=== PATIENT | female | born 1955 | race Caucasian/White ===

== ENCOUNTER → 2021-05-10 | Outpatient (CLI) | payer OTHER ==
[~2021-05-10] MED LIST: ALPR0.25 PO; ASPI-789 PO; LATA7.5D OP
--- NOTE | 2021-05-10 08:35 | Diagnostic Imaging Report ---
PROCEDURE: US Gallbladder. TECHNIQUE: Multiple real-time grayscale images were obtained over the right upper quadrant in various projections. INDICATION: Right upper quadrant pain with nausea and vomiting. Hepatic echotexture appeared homogenous and normal. No solid or cystic liver mass. There is no intra or extrahepatic bile duct dilatation. There are mobile echogenic shadowing foci within the gallbladder consistent with gallstones. There was however no para cholecystic fluid. The Gomes sign was negative. The gallbladder wall non-thickened. The extrahepatic bile duct appeared normal and the unobstructed right kidney measuring 10.6 cm long axis was normal in size, cortical thickness and echotexture. IMPRESSION: Cholelithiasis. Dictated by: Dictated on workstation # [id number]
== END ==
LOC: RAD 08:00
PROVIDERS: ATTEND Surgery
DX: K80.20 Calculus of gallbladder without cholecystitis without obstruction (principal)
CPT/HCPCS: 76705

== ENCOUNTER 2021-05-14 05:32 | Outpatient (CLI) | payer OTHER ==
[~2021-05-14] VITALS: Ht 160.2 cm; Wt 66.8 kg
[2021-05-14] MEDS ORDERED: ALPR0.25 PO (14:30)
[2021-05-14] MEDS ORDERED: ASPI-789 PO (14:30)
[2021-05-14] MEDS ORDERED: LATA7.5D OP (14:30)
== END 2021-05-14 14:51 ==
LOC: PREOP 05:32
PROVIDERS: ATTEND Surgery
DX: Z01.818 Encounter for other preprocedural examination (principal)

== ENCOUNTER 2021-05-16 10:17 | Day surgery (SDC) | payer OTHER ==
[~2021-05-16] VITALS: Ht 160.2 cm; Wt 66.8 kg
[2021-05-16] VITALS (11 sets, daily range): BP systolic 115–184; BP diastolic 49–88
[2021-05-16] MEDS ORDERED: ceFAZolin INJECTION 1,000 MG VIAL IV ONE (10:30)
[2021-05-16] MEDS ORDERED: HYDR-3817 PO (10:54)
--- NOTE | 2021-05-16 10:55 | Discharge Inst-Surgical ---
D/C Lap Instructions-KIDO Reconcile Patient Problems Problems Reviewed?: Yes New, Converted, or Re-Newed RX: RX on Chart Follow Up Appt in 2 weeks Activity as tolerated No driving for 24 hours No driving while on pain medications Incentive Spirometry use every 2 hours while awake Regular Diet Symptoms to Report: Fever over 101 degree F, Nausea/Vomiting Infection Signs and Symptoms to report: Increased redness, Foul odor of wound, Increased drainage Bathing instructions: May shower Operative Area Clean/Dry; Keep incision clean/dry If any problems/questions: Contact your physician or go to Emergency Room BRANDEN SHAFFER APRN May 16, 2021 10:55
[2021-05-16] MEDS ORDERED: ONDANSETRON 4 MG/2 ML (SDV) Z0FRAN ONE ×2 (10:56→13:39)
[2021-05-16] MEDS ORDERED: FAMOTIDINE 20MG/2ML IV (PEPCID) ONE (10:56)
[2021-05-16] MEDS ORDERED: HYDROcodone/APAP 5 MG/325 MG (LORTAB) TAB PO ONE (11:00)
[2021-05-16] MEDS ORDERED: ACETAMINOPHEN 325 MG TABLET PO PRN (11:00)
[2021-05-16] MEDS ORDERED: morphine INJ 10 MG/ML 1ML (SYR OR VIAL) IVP PRN (11:00)
[2021-05-16] MEDS ORDERED: ONDANSETRON 4 MG/2 ML (SDV) Z0FRAN IVP PRN ×2 (11:00→15:15)
[2021-05-16] MEDS ORDERED: ONDANSETRON 4 MG/2 ML (SDV) Z0FRAN IV ONE (11:00)
[2021-05-16] MEDS: LACTATED RINGERS 1,000 ML IV PRN ×2 (11:00→14:34)
[2021-05-16] MEDS ORDERED: FAMOTIDINE 20MG/2ML IV (PEPCID) IV ONE (11:00)
--- NOTE | 2021-05-16 12:27 | Progress Note-Pre Operative ---
Pre-Operative Progress Note H&P Reviewed The H&P was reviewed, patient examined and no changes noted. Date Seen by Provider: May 16, 2021 Time Seen by Provider: 12:25 Date H&P Reviewed: May 16, 2021 Time H&P Reviewed: 12:20 Pre-Operative Diagnosis: Symptomatic chronic calculous cholecystitis BRANDEN SHAFFER APRN May 16, 2021 12:27
[2021-05-16] MEDS ORDERED: LIDOCAINE/EPI 2% 1:200,00 (XYLOCAINE) 20 ML VIAL ONE (13:13)
[2021-05-16] MEDS ORDERED: proPOfol 200 MG/20 ML (DIPRIVAN) VIAL IV ONE (13:39)
[2021-05-16] MEDS ORDERED: NEOSTIGMINE 3 MG/3 ML VIAL ONE (13:39)
[2021-05-16] MEDS ORDERED: MIDAZOLAM 2 MG/2 ML (VERSED) VIAL ONE (13:39)
[2021-05-16] MEDS ORDERED: LIDOCAINE PF 2% 5 ML (XYLOCAINE) VIAL ONE (13:39)
[2021-05-16] MEDS ORDERED: GLYCOPYRROLATE 0.2 MG/ML (ROBINUL) 2 ML VIAL ONE (13:39)
[2021-05-16] MEDS ORDERED: fentaNYL INJ 100 MCG/2 ML AMP ONE (13:39)
[2021-05-16] MEDS ORDERED: ROCURONIUM 10 MG/ML 5 ML SYRINGE IV ONE (13:39)
[2021-05-16] MEDS ORDERED: PHENYLEPHRINE 100 MCG/ML 10 ML (ANESTHESIA) SYR ONE (14:37)
[2021-05-16] MEDS ORDERED: SEVOFLURANE (ULTANE) 15 ML INHAL SOLN ONE (14:59)
--- NOTE | 2021-05-16 15:03 | Progress Note-Post Operative ---
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
[2021-05-16] MEDS ORDERED: HYDROmorphone 2 MG/ML VIAL (DILAUDID) IV ONE (15:15)
[2021-05-16] MEDS ORDERED: morphine INJ 10 MG/ML 1ML (SYR OR VIAL) IVP ONE (15:15)
--- NOTE | 2021-05-16 15:51 | Anesthesia-General Post-Op ---
General Patient Condition Mental Status/LOC: Same as Preop Cardiovascular: Satisfactory Nausea/Vomiting: Absent Respiratory: Satisfactory Pain: Controlled Complications: Absent Post Op Complications Complications None Follow Up Care/Instructions Patient Instructions None needed. Anesthesia/Patient Condition Patient Condition Patient is doing well in PACU, no complaints, stable vital signs, no apparent adverse anesthesia problems. TRISTAN ADAM DO May 16, 2021 15:51
[2021-05-16] MEDS ORDERED: HYDROcodone/APAP 5 MG/325 MG (LORTAB) TAB ONE (16:19)
--- NOTE | 2021-05-16 20:14 | OPERATIVE REPORT ---
DATE OF SERVICE: 05/16/2021 PREOPERATIVE DIAGNOSIS: Symptomatic chronic calculous cholecystitis. POSTOPERATIVE DIAGNOSIS: Symptomatic chronic calculous cholecystitis. PROCEDURE: Laparoscopic cholecystectomy. SURGEON: Mickey Day MD. FLORAL DECORATOR: José Miguel Meehan APRN ANESTHESIA: General endotracheal. ESTIMATED BLOOD LOSS: Minimal. FINDINGS: Multiple small gallstones and biliary sludge. DISPOSITION: The patient tolerated the procedure well. INDICATIONS: The patient is a 65-year-old female who has had issues with pain in the right upper abdominal quadrant, usually after eating meals and this would be associated with nausea. She reports that she had a bad episode approximately 3 weeks ago where the pain was more intense and she had an episode of nausea and vomiting. She underwent an ultrasound, which did show gallstones. DESCRIPTION OF PROCEDURE: The patient was brought to the operating room, laid supine on the table. After adequate IV pain and sedative medications and general endotracheal intubation, the abdomen was prepped and draped in standard surgical fashion. A 0.5% Marcaine with epinephrine was used to anesthetize overlying skin in the left upper abdominal quadrant and a transverse skin incision made using a 15 blade. An 0 silk suture was applied to the medial aspect incision for retraction and a Veress needle inserted with low opening pressure of 0 mmHg. The abdomen was then insufflated to 15 mmHg pressure. The Veress needle removed and a 5 mm XL trocar placed followed by a 5 mm 45-degree angle laparoscope visualizing the peritoneal cavity. A 4-quadrant abdominal exploration was performed. There was a slightly distended gallbladder, no gallbladder wall thickening. Under direct visualization, we then proceeded to place a supraumbilical 10 mm port after the skin and peritoneal lining were anesthetized using 0.5% Marcaine with epinephrine and a transverse skin incision made using a 15 blade. In a similar manner, a right upper abdominal quadrant 5 mm port was placed. The patient was then placed in reverse Trendelenburg position as well as plane right side up, left side down. The fundus of the gallbladder was then retracted anteriorly and superiorly. The hepatoduodenal ligament was then dissected using blunt dissection as well as electrocautery using the hook instrument as well as a [place] dissector. The entire critical view of safety was identified including the triangle of Calot, the cystic duct and artery as only two structures going into the gallbladder as well as the cystic plate behind the proximal gallbladder. A timeout was then taken and the cystic duct and artery were then clipped proximally, distally and cut with EndoShears. The gallbladder was then dissected off the liver bed using cautery on hook instrument with visualization of good hemostasis as well as no leaking ducts of Luschka. The gallbladder was removed through the 10 mm port site using an EndoCatch bag. The 10 mm port site fascia and peritoneum were then closed under direct visualization using a Raphael-Ida device and 0 Vicryl suture. The abdomen was desufflated and remaining ports removed. All skin incisions were closed using 4-0 Monocryl running subcuticular sutures. Wounds were then cleaned and covered with Dermabond. The patient tolerated the procedure well. We will start IV normal pain medication as well as a clear liquid diet. When she is tolerating clears, has good pain control with oral pain medication and is ambulating well, we will discharge her home. She will be instructed to do no heavy lifting or exertion for the next two weeks. Job ID: [id number] DocumentID: [id number] Dictated Date: 05/16/2021 15:09:37 Utility Hand Date: 05/16/2021 20:13:26 Dictated By: MICKEY DAY MD
== END 2021-05-16 17:45 | disposition home or self-care (01) ==
LOC: SDC 10:17
PROVIDERS: ATTEND Surgery
DX: K80.10 Calculus of gallbladder with chronic cholecystitis without obstruction (principal)
CPT/HCPCS: 87081; 94664